=== PATIENT | male | born 1970 | race Caucasian/White ===

== ENCOUNTER → 2019-02-19 15:32 | Outpatient (REF) | payer BC, SELFPAY ==
[2019-02-19 16:05] LABS: Vancomycin,Trough 1.1 mcg/ml (10.0-20.0)
== END ==
LOC: LAB.DROPOF 15:32
PROVIDERS: Visit Provider Podiatrist Foot & Ankle Surgery
DX: Z51.81 Encounter for therapeutic drug level monitoring (principal)
CPT/HCPCS: 80202

== ENCOUNTER → 2019-02-24 14:58 | Outpatient (CLI) | payer BC, SELFPAY ==
[2019-02-24 16:28] LABS: Vancomycin,Trough 12.4 mcg/ml (10.0-20.0)
== END ==
PROVIDERS: Visit Provider Podiatrist Foot & Ankle Surgery
DX: Z51.81 Encounter for therapeutic drug level monitoring (principal)
CPT/HCPCS: 80202

== ENCOUNTER → 2019-03-05 10:06 | Outpatient (CLI) | payer BC, SELFPAY ==
[2019-03-05 10:23] VITALS: BMI 38.1
[2019-03-05 11:25] LABS: Basophils % 0.3 % (0.1-2.0); Eosinophils # 0.3 K/mm3 (0.0-0.4); Eosinophils % 2.7 % (0.1-12.0); Hematocrit 36.5 % (42.0-52.0); Hemoglobin 11.9 g/dL (14.1-18.0); Lymphocytes # 1.6 K/mm3 (0.7-4.5); Lymphocytes % 17.3 % (10-50); Mean Corpuscular HGB Conc 32.7 g/dL (31.8-35.4); Mean Corpuscular Hemoglobin 26.5 pg (27.0-31.2); Mean Corpuscular Volume 81.2 fl (80-94); Mean Platelet Volume 8.2 fl (7.4-10.4); Monocytes # 0.5 K/mm3 (0.1-1.0); Neutrophils % 74.7 % (37.0-80.0); Platelet Count 318 K/mm3 (142-424); Red Cell Distribution Width 15.4 % (11.5-17.5); White Blood Count 9.4 K/mm3 (4.8-10.8)
[2019-03-05 11:40] LABS: Alanine Aminotransferase 24 U/L (12-78); Albumin Level 2.4 gm/dL (3.4-5.0); Albumin/Globulin Ratio 0.6 (1.1-1.8); Alkaline Phosphatase 285 U/L (46-116); Anion Gap 9.9 mEq/L (5-15); Aspartate Amino Transferase 8 U/L (15-37); Bilirubin,Total 0.5 mg/dL (0.2-1.0); Blood Urea Nitrogen 8 mg/dL (7-18); Calcium 8.6 mg/dL (8.5-10.1); Carbon Dioxide 31 mmol/L (21.0-32.0); Chloride 99 mmol/L (98-107); Creatinine Clearance Estimated 194 mL/min (50-200); Creatinine,Serum 0.83 mg/dL (0.70-1.30); Estimated Glomerular Filt Rate 98 ml/min (>60); GFR (African American) 119 ML/MIN (>60); Globulin 4.2 gm/dl (1.3-3.2); Glucose 214 mg/dL (74-106); Potassium 3.9 mmoL/L (3.5-5.1); Sodium 136 mmol/L (136-145); Total Protein,Serum 6.6 gm/dL (6.4-8.2); Vancomycin,Trough 16.4 mcg/ml (10.0-20.0)
[2019-03-05 11:50] LABS: Erythrocyte Sedimentation Rate 47 mm/hr (0-15)
[2019-03-05 11:51] LABS: C-Reactive Protein 13.3 mg/L (0.0-0.9)
== END ==
PROVIDERS: PCP Family Medicine; Visit Provider Podiatrist Foot & Ankle Surgery
DX: Z51.81 Encounter for therapeutic drug level monitoring (principal)
CPT/HCPCS: 36415; 80053; 80202; 85025; 85651; 86140; 96523; J1642

== ENCOUNTER 2019-03-12 11:50 | Outpatient (CLI) | payer BC, SELFPAY ==
[2019-03-12 12:13] VITALS: BMI 39.4
[2019-03-12 12:44] LABS: Basophils # 0.1 K/mm3 (0-0.2); Basophils % 0.4 % (0.1-2.0); Eosinophils # 0.3 K/mm3 (0.0-0.4); Eosinophils % 2.1 % (0.1-12.0); Hematocrit 42.5 % (42.0-52.0); Lymphocytes # 1.8 K/mm3 (0.7-4.5); Lymphocytes % 12.3 % (10-50); Mean Corpuscular HGB Conc 30.6 g/dL (31.8-35.4); Mean Corpuscular Hemoglobin 25.1 pg (27.0-31.2); Mean Corpuscular Volume 82.1 fl (80-94); Mean Platelet Volume 7.4 fl (7.4-10.4); Monocytes # 0.9 K/mm3 (0.1-1.0); Monocytes % 5.7 % (1.7-9.3); Neutrophils # 11.8 K/mm3 (1.8-7.8); Neutrophils % 79.4 % (37.0-80.0); Platelet Count 566 K/mm3 (142-424); Red Blood Count 5.18 M/mm3 (4.60-6.20); White Blood Count 14.8 K/mm3 (4.8-10.8)
--- NOTE | 2019-03-12 13:00 | PC.NURSE ---
1300-called to notify pt of blood work (glucose 44). left message on pt voicemail.
[2019-03-12 13:03] LABS: Alanine Aminotransferase 27 U/L (12-78); Albumin Level 2.9 gm/dL (3.4-5.0); Albumin/Globulin Ratio 0.6 (1.1-1.8); Alkaline Phosphatase 374 U/L (46-116); Anion Gap 11.2 mEq/L (5-15); Aspartate Amino Transferase 19 U/L (15-37); Bilirubin,Total 0.9 mg/dL (0.2-1.0); Blood Urea Nitrogen 9 mg/dL (7-18); Calcium 9.3 mg/dL (8.5-10.1); Carbon Dioxide 33 mmol/L (21.0-32.0); Chloride 95 mmol/L (98-107); Creatinine Clearance Estimated 185 mL/min (50-200); Estimated Glomerular Filt Rate 90 ml/min (>60); GFR (African American) 109 ML/MIN (>60); Potassium 3.2 mmoL/L (3.5-5.1); Sodium 136 mmol/L (136-145); Total Protein,Serum 7.9 gm/dL (6.4-8.2)
[2019-03-12 13:07] LABS: Glucose 44 mg/dL (74-106)
[2019-03-12 13:24] LABS: Erythrocyte Sedimentation Rate 21 mm/hr (0-15)
[2019-03-12 13:48] LABS: Vancomycin,Trough 17.3 mcg/ml (10.0-20.0)
--- NOTE | 2019-03-12 15:00 | PC.NURSE ---
1500-tried to call pt about blood work.
== END 2019-03-12 12:30 | disposition home or self-care (01) ==
LOC: INF 11:58
PROVIDERS: Visit Provider Podiatrist Foot & Ankle Surgery
DX: Z51.81 Encounter for therapeutic drug level monitoring
CPT/HCPCS: 36415; 80053; 80202; 85025; 85651; 86140

== ENCOUNTER → 2020-03-21 10:18 | Outpatient (CLI) | payer BC, MEDICAID, SELFPAY ==
--- NOTE | 2020-03-21 10:55 | ECG_ITS ---
APPROVED REPORT Exam: Resting ECG HR:67 bpm ECG Measurements Heart Rate 67 AXES MS 150 P 37 QRSd 100 QRS 52 QT 412 T 58 QTc 435 <Conclusion> Normal sinus rhythm Normal ECG Electronically signed by : Efe Barker, 03/22/2020 17:09:23
== END ==
PROVIDERS: PCP Family Medicine; Visit Provider Physical Medicine & Rehabilitation
DX: Z51.81 Encounter for therapeutic drug level monitoring (principal)
CPT/HCPCS: 93005

== ENCOUNTER 2020-04-15 17:56 | Emergency (ER) | payer BC, MEDICAID, SELFPAY ==
[2020-04-15 18:09] VITALS: BP 97/70; PULSE 73; RESP 16; TEMP 36.8; O2SAT 100; BMI 39.4
--- NOTE | 2020-04-15 18:47 | HMH.EDUTC ---
[facility] [place] Disposition Clinical Impression: Abscess Disposition: Home, Self-Care Condition on Discharge: Good Instructions: Boil, DI for Skin Abscess, DI for Cellulitis -- Adult, Clindamycin Additional Instructions: *Start antibiotic(s) immediately and be sure to take as ordered for the FULL length of time although you may be feeling better or start to see improvement in the next 24-48 hours *Monitor closely. Outlined redness so that you can monitor easier. Follow up immediately for new or worsening symptoms including but not limited to redness, swelling, streaking from site fever or chills. *Warm compress 15 minutes 3-4 times day *Never squeeze or pop these on your own. Seek immediate medical attention next time this occurs *Monitor Temp. Tylenol every 4 hours as needed and ibuprofen every 6 hours as needed (as long as your primary care doctor has told you that it is ok to take both. For fever, aches, pain. ER if no less that 101 despite Tylenol and ibuprofen Follow up with your family doctor/primary care physician in the next 48-72 hours if no improvement for further treatment and evaluation Follow up with Urology if symptoms continue or worsen REturn if needed Straight to ER if any life threatening symptoms Prescriptions: clindamycin HCL [Clindamycin HCl 300mg Cap] 300 mg PO Q6 7 Days #28 cap Prescription Printed Referrals: PCPMinna [Primary Care Provider] - As needed Time of Disposition: 18:55 Medical Decision Making - Maicol Inquiry Pt receiving controlled substance: No Maicol was queried for this patient: No Vital Signs: 04/15/20 18:09 Temperature 98.2 F Temperature Source Oral Pulse Rate [Left] 73 Respiratory Rate 16 Blood Pressure [Right Arm] 97/70 L Blood Pressure Mean [Right Arm] 79 Blood Pressure Source [Right Arm] Automatic Cuff Blood Pressure Position [Right Arm] Sitting 02 Sat by Pulse Oximetry 100 Oxygen Delivery Method Room Air [facility] [place] HPI - General Stated complaint: painful place on testicles Time Seen by Provider: 04/15/20 18:48 Mode of Arrival: Ambulatory Source of Information: Patient Limitations: No Limitations Description of Symptoms (Recalled from Triage Doc. by RN): pt c/o spot on his testicles. Advises he has a hx of boils on his testicles. advises the spot has been there for approx 3 days - History of Present Illness Provider Complaint: Patient states that he has a history of boils on his legs and testicles States that for the last several days he has been having a red hard area on the left side of his testicle and had a little drainage earlier States that he has had to have them cut open and take antibiotics for them and wanted to come in and see if he could get something for it - Related Data Previous Rx's Medication Instructions Recorded clindamycin HCL [Clindamycin HCl 300 mg PO Q6 7 Days #28 cap 04/15/20 300mg Cap] Allergies Allergy/AdvReac Type Severity Reaction Status Date / Time No Known Drug Allergies Allergy Verified 03/05/19 10:27 [facility] History - Hepatitis A Screen Attestation statement:: This patient has been screened for Hepatitis A risk factors. I have reviewed the patient's past medical history: Yes ROS Obtained: Yes All systems reviewed & no additional complaints, Yes Systems reviewed as appropriate & no additional complaints - Constitutional Constitutional: Reports system reviewed and no additional complaints, except as docu - ENT Ears, Nose, Mouth, and Throat: Reports system reviewed and no additional complaints, except as docu - Cardiovascular Cardiovascular: Reports system reviewed and no additional complaints, except as docu - Respiratory Respiratory: Yes system reviewed and no additional complaints, except as docu - Gastrointestinal Gastrointestingal: Reports: system reviewed and no additional complaints, except as docu - Genitourinary Male Genitourinary: Reports other (boil on his left testicle area) Physical Exam -
[2020-04-15 18:50] VITALS: BP 97/70; PULSE 73; RESP 16; TEMP 36.8; O2SAT 100; BMI 39.4
[2020-04-15 18:55] VITALS: BP 97/70; PULSE 73; RESP 16; TEMP 36.8; O2SAT 100
== END 2020-04-15 19:07 | disposition home or self-care (01) ==
PROVIDERS: Emergency Provider Nurse Practitioner
DX: N45.4 Abscess of epididymis or testis (principal)
CPT/HCPCS: 87070; 87077; 87186; 87205; 99201

== ENCOUNTER → 2020-08-11 13:51 | Outpatient (CLI) | payer BC, MEDICAID, SELFPAY ==
[2020-08-11 13:59] LABS: Adenovirus F 40/41, stool Not Detected (NotDetected); Astrovirus Not Detected (NotDetected); Campylobacter Not Detected (NotDetected); Clostridium Difficile A/B, PCR Not Detected (NotDetected); Cryptosporidium Not Detected (NotDetected); Cyclospora Cayetanesis Not Detected (NotDetected); Entamoeba histolytica Not Detected (NotDetected); Enteroaggregative E coli Not Detected (NotDetected); Enteropathogenic E coli Not Detected (NotDetected); Enterotoxigenic E coli Not Detected (NotDetected); Giardia lamblia Not Detected (NotDetected); Norovirus Not Detected (NotDetected); Plesimonas Shigalloides, PCR Not Detected (NotDetected); Rotavirus A Not Detected (NotDetected); Salmonella, PCR Not Detected (NotDetected); Sapovirus Not Detected (NotDetected); Shiga-like toxin E coli Not Detected (NotDetected); Shigella Enterovasive E coli Not Detected (NotDetected); Vibrio Cholerae Not Detected (NotDetected); Vibrio, PCR Not Detected (NotDetected); Yersinia Entercolitica, PCR Not Detected (NotDetected)
== END ==
PROVIDERS: Visit Provider Internal Medicine Infectious Disease
DX: R19.7 Diarrhea, unspecified (principal); L02.214 Cutaneous abscess of groin; L02.213 Cutaneous abscess of chest wall
CPT/HCPCS: 87506

== ENCOUNTER 2021-08-12 20:18 | Emergency (ER) | payer BC, SELFPAY ==
[2021-08-12 20:32] VITALS: BP 172/97; PULSE 78; RESP 19; TEMP 37.1; O2SAT 99; BMI 33.3
--- NOTE | 2021-08-12 21:01 | HMH.EDUTC ---
[facility] [place] Disposition Clinical Impression: Abscess Disposition: Home, Self-Care Condition on Discharge: Good Instructions: Cellulitis, DI for Skin Abscess Additional Instructions: Keep the affected area clean and dry. Follow up with your regular doctor in 1 to 2 days to recheck this wound. Take the antibiotics as directed and apply the topical antibiotics as directed. Apply warm wet compresses to the affected area three or four times per day. GO TO THE ER FOR ANY WORSENING SYMPTOMS, ESPECIALLY ANY FEVER/CHILLS ETC. Prescriptions: Sulfamethoxazole/Trimethoprim [Bactrim DS tablet] 1 each PO BID 10 Days #20 tab Transmission Status: Received by [facility] #[id number] Mupirocin [Bactroban 2% Ointment 22gm tube] 1 applicatio TP TID 7 Days #1 gm Transmission Status: Received by [facility] #[id number] cephALEXin [cephALEXin 500mg capsule] 500 mg PO Q6H 10 Days #40 cap Transmission Status: Received by [facility] #[id number] Referrals: Provider,Referral, [Primary Care Provider] - Time of Disposition: 21:30 Medical Decision Making - Medical Records Medical records reviewed: No: I reviewed the patient's medical records. - Maicol Inquiry Pt receiving controlled substance: No Vital Signs: 08/12/21 20:32 08/12/21 21:33 Temperature 98.8 F 98.8 F Temperature Source Oral Pulse Rate 79 Pulse Rate [Left] 78 Respiratory Rate 19 19 Blood Pressure 168/92 H Blood Pressure [Right Arm] 172/97 H Blood Pressure Mean [Right Arm] 122 02 Sat by Pulse Oximetry 99 - Lab Data Lab Results 08/12/21 20:54: Strep Scn Rapid Clinic Negative Orders (Tests/Meds): ED MEDICATIONS Discontinued Medications Generic Name Dose Route Start Last Admin Trade Name Freq PRN Reason Stop Dose Admin Ceftriaxone Sodium 1 gm 08/12/21 21:01 08/12/21 21:33 Ceftriaxone 1gm Vial IM 08/12/21 21:02 1 gm ONCE ONE Administration Lidocaine HCl 0 ml 08/12/21 21:01 08/12/21 21:33 Lidocaine 1% 5ml Pf Vial IM 08/12/21 21:02 2.5 ml ONCE ONE Administration ORDERS Category Date Time Status Strep Screen Confirmation Stat Micro 08/12/21 20:54 Received [facility] [place] HPI - General Stated complaint: facial redness and discoloration Time Seen by Provider: 08/12/21 21:02 Mode of Arrival: Ambulatory Source of Information: Patient Limitations: No Limitations Description of Symptoms (Recalled from Triage Doc. by RN): pt has a knot above his R jawline. the area is red, swollen and warm. pt states it has been like this since 08/08. pt states the area is very painful. HEENT Symptoms (Recalled from RN notes): Yes (pt has a red, hot, swollen area on his R jaw side) Resp Symptoms (Recalled from RN notes): No Skin Symptoms (Recalled from RN notes): No MS Symptoms (Recalled from RN notes): No Functional Status (Recalled from RN notes): na - History of Present Illness Provider Complaint: On the right side of his face, along his jaw line, there is an area of erythema and a knot , he denies any injury. He states that the place started coming up about 3 days ago and since then it has got more tender to touch. - Related Data Previous Rx's Medication Instructions Recorded clindamycin HCL [Clindamycin HCl 300 mg PO Q6 7 Days #28 cap 04/15/20 300mg Cap] Mupirocin [Bactroban 2% Ointment 1 applicatio TP TID 7 Days #1 gm 08/12/21 22gm tube] Sulfamethoxazole/Trimethoprim 1 each PO BID 10 Days #20 tab 08/12/21 [Bactrim DS tablet] cephALEXin [cephALEXin 500mg 500 mg PO Q6H 10 Days #40 cap 08/12/21 capsule] Allergies Allergy/AdvReac Type Severity Reaction Status Date / Time No Known Drug Allergies Allergy Verified 03/05/19 10:27 - Worker's Comp Is this a Worker's Comp case?: No [facility] History - Hepatitis A Screen Drug use history?: No High risk sexual behaviors?: No History of sexually transmitted infection?: No Currently employed?: No Childcare worker?: No Do you have
[2021-08-12 21:10] LABS: UTC Strep Screen (Rapid) Negative (Negative)
[2021-08-12 21:33] VITALS: BP 168/92; PULSE 79; RESP 19; TEMP 37.1
== END 2021-08-12 21:37 | disposition home or self-care (01) ==
PROVIDERS: Emergency Provider Nurse Practitioner Family
DX: L02.01 Cutaneous abscess of face (principal)
CPT/HCPCS: 87880; 96372; 99202; G0463

== ENCOUNTER 2022-02-02 13:31 | Emergency (ER) | payer MEDICARE, MEDICAID, SELFPAY ==
--- NOTE | 2022-02-02 13:51 | PC.NURSE ---
notified care aid
--- NOTE | 2022-02-02 13:52 | HMH.EDGENADL ---
ED Disposition Clinical Impression: Cardiac arrest Disposition: Condition on Discharge: - Critical Care Critical Care Time: No Attestation: On , the high probability of a clinically significant, sudden or life threatening deterioration of the following system(s) required my full and direct attention, intervention and personal management. The time I documented below is in addition to time spent performing reported procedures but includes the following listed in this critical care notation. Probable Cause of : Cardiac arrest Medical Decision Making - Maicol Inquiry Pt receiving controlled substance: No Medical Decision Narrative: The patient arrived in asystole. CPR was continued. He was administered bicarbonate and 3 rounds of epinephrine. He developed pulseless electrical activity but never developed return of spontaneous circulation. At this point he has had a documented cardiac arrest of it at least 60 minutes. It was felt that further efforts would be futile and he was pronounced at 1:42 PM. PEA deteriorated to asystole after CPR was discontinued. 2:05 PM: I spoke with patient's and daughter. She states that the patient's antibiotic was changed because his urine was very yellow. He started his new antibiotic today for the first time, piperacillin. He had no known allergies to antibiotics. She says after the antibiotic infusion was begun he began complaining of burning in his back and became nauseated and vomiting. She says he went to the bathroom and then slumped over unresponsive on the sink. 911 was called. They were instructed to lay him on his back. They did not start chest compressions, chest compressions were started by EMS upon arrival. states that he recently had been at [facility] and discharged around . He had been in for 3 days for an infection in his foot. General Adult HPI - General Stated complaint: code blue Time Seen by Provider: 02/02/22 13:31 - History of Present Illness HPI narrative: Brought in by ambulance in cardiac arrest with CPR in progress. Call received at 12:42 PM that bystanders had started CPR on the patient. Bystander suspected an allergic reaction because the patient had just had an infusion of antibiotics started in his PICC line and then became cyanotic and unresponsive. EMS found him to be in ventricular fibrillation. He was defibrillated once with subsequent asystole after defibrillation. CPR continued and he was intubated. He reportedly developed return of spontaneous circulation with pulse briefly several times in route, but then went into PEA. He has been given IV fluids in route. 4 rounds of epinephrine in route. - Related Data Previous Rx's Medication Instructions Recorded clindamycin HCL [Clindamycin HCl 300 mg PO Q6 7 Days #28 cap 04/15/20 300mg Cap] Mupirocin [Bactroban 2% Ointment 1 applicatio TP TID 7 Days #1 gm 08/12/21 22gm tube] Sulfamethoxazole/Trimethoprim 1 each PO BID 10 Days #20 tab 08/12/21 [Bactrim DS tablet] cephALEXin [cephALEXin 500mg 500 mg PO Q6H 10 Days #40 cap 08/12/21 capsule] Allergies Allergy/AdvReac Type Severity Reaction Status Date / Time No Known Drug Allergies Allergy Verified 03/05/19 10:27 [facility] History - Hepatitis A Screen Attestation statement:: This patient has been screened for Hepatitis A risk factors. I have reviewed the patient's past medical history: Yes Medical History: Reports:: Diabetes Mellitus Type 2 - Social History Smoking Status: Current every day smoker Tobacco Type: cigarettes # Packs/Day (cigarettes): 1 Alcohol Intake: never Occupational Status: other ROS Obtained: Yes unobtainable due to mental status Physical Exam - General General appearance: other (Unresponsive, apneic, pulseless, cyanotic in the face and neck, pupils fixed and dilated bilaterally) - Head Head exam: atraumatic, normoceph
--- NOTE | 2022-02-02 14:03 | PC.NURSE ---
ER speaking with pt family
--- NOTE | 2022-02-02 14:06 | PC.NURSE ---
family at BS
--- NOTE | 2022-02-02 14:08 | PC.NURSE ---
spoke with [employer] representative Nicole Wells, states released pt
--- NOTE | 2022-02-02 14:24 | PC.NURSE ---
[employer]esy [facility] at [facility] with family
--- NOTE | 2022-02-02 14:53 | PC.NURSE ---
contacting [facility] per family request.
[2022-02-02 15:08] VITALS: BMI 33.9
--- NOTE | 2022-02-02 16:07 | PC.NURSE ---
checked on family at this time, states no needs. Offered food, they declined at this time. Courtesy karen at [facility]
[2022-02-02 16:48] VITALS: BP 0/0; PULSE 0; RESP 0; TEMP -17.7; TEMP 0; O2SAT 0
--- NOTE | 2022-02-02 16:48 | PC.NURSE ---
Assisted moving patient to home stretcher; no complications
== END 2022-02-02 16:48 | disposition expired ==
PROVIDERS: Emergency Provider Emergency Medicine
DX: I46.9 Cardiac arrest, cause unspecified (principal); I49.01 Ventricular fibrillation; F17.210 Nicotine dependence, cigarettes, uncomplicated
CPT/HCPCS: 31500; 92950; 96375; 99285